=== PATIENT | male | born 1995 | race Caucasian/White ===

== ENCOUNTER → 2017-07-02 | Outpatient (REF) | payer OTHER | LOC: M LAB REF 13:01 | PROVIDERS: ATTEND Surgery | DX: Z20.2 Contact with and (suspected) exposure to infections with a predominantly sexual mode of transmission (principal) ==

== ENCOUNTER 2020-09-17 17:48 | Emergency (ER) | payer OTHER ==
[~2020-09-17] VITALS: Ht 170.2 cm; Wt 79.1 kg
[2020-09-17] MEDS ORDERED: BACTRIM 160MG/800MG DS TAB PO ONE (19:15)
[2020-09-17] MEDS ORDERED: NORCO, ANEXSIA 5/325MG TABLET (HYDROcodone/ACETAMINOPHEN) PO ONE (19:15)
[2020-09-17] MEDS ORDERED: LIDOCAINE W/EPINEPHRINE 1% 20ML VIAL SC ONE (19:15)
[2020-09-17] MEDS ORDERED: BACT800T5 PO (19:36)
[2020-09-17] MEDS ORDERED: HYDR-3715 PO (19:36)
[2020-09-17 19:47] VITALS: BP 115/63
== END 2020-09-17 19:48 | disposition home or self-care (01) ==
LOC: EEVIPCON 17:48 → M ED 17:48
DX: L02.211 Cutaneous abscess of abdominal wall (principal); F17.200 Nicotine dependence, unspecified, uncomplicated